=== PATIENT | female | born 1970 | race Caucasian/White ===

== ENCOUNTER 2018-07-26 10:55 | Day surgery (SDC) | payer OTHER ==
[2018-07-26] MEDS ORDERED: DIPRIVAN 200 MG/20 ML IV ONE (10:56)
[2018-07-26] MEDS ORDERED: Sodium Chloride 0.9(Preservative Free) 10 ML IJ ONE (10:56)
[2018-07-26] MEDS ORDERED: Depo-Medrol 40 MG/ML IM ONE (10:56)
--- NOTE | 2018-07-26 13:42 | XRAY ---
Indication: Bilateral L4-S1 transforaminal injections. Intraoperative fluoroscopy was provided for 56 seconds. 5 digital spot images submitted for interpretation demonstrates posterior spinal needle tips projecting over the expected course of the left and right L4-L5 nerve roots. Small amount of contrast injected for needle tip placement. Correlate with intraoperative findings/report. Incidental bilateral L5-S1 posterior pedicle screws/hardware and intervertebral spacer.
--- NOTE | 2018-07-26 13:49 | XRAY ---
56 seconds fluoroscopy time in surgery for bilateral L4-S1 transforaminal injections.
[2018-07-26] MEDS ORDERED: Lactated Ringers 1,000 ML IV ONE (15:00)
== END 2018-07-26 12:37 | disposition home or self-care (01) ==
LOC: SDC-PAIN 10:55
PROVIDERS: ATTEND Psychiatry & Neurology Pain Medicine
DX: M54.16 Radiculopathy, lumbar region (principal); M47.816 Spondylosis without myelopathy or radiculopathy, lumbar region; M54.9 Dorsalgia, unspecified; M25.552 Pain in left hip; M25.551 Pain in right hip; I10 Essential (primary) hypertension; K51.90 Ulcerative colitis, unspecified, without complications; F32.9 Major depressive disorder, single episode, unspecified; Z79.899 Other long term (current) drug therapy
CPT/HCPCS: 72020; 77003; J1030; J2704

== ENCOUNTER 2019-05-02 13:36 | Day surgery (SDC) | payer OTHER ==
[2019-05-02] MEDS ORDERED: Xylocaine-Mpf 2% 5 Ml Vial IJ ONE (13:37)
[2019-05-02] MEDS ORDERED: Depo-Medrol 40 MG/ML IM ONE (13:37)
[2019-05-02] MEDS ORDERED: DIPRIVAN 200 MG/20 ML IV ONE (14:25)
[2019-05-02] MEDS ORDERED: Ketamine HCl 50 MG/ML ONE (14:25)
[2019-05-02] MEDS ORDERED: Lactated Ringers 1,000 ML IV ONE (16:18)
--- NOTE | 2019-05-02 17:05 | XRAY ---
Indication: Bilateral L4-S1 MBB. Intraoperative fluoroscopy was provided for 21 seconds. 3 digital spot images submitted for interpretation demonstrate posterior needle tips projecting over the expected course of the left and right L4-S1 nerve roots. Correlate with intraoperative findings/report. Incidental bilateral L5-S1 posterior pedicle screws/hardware and intervertebral spacer.
--- NOTE | 2019-05-02 17:23 | XRAY ---
21 seconds fluoroscopy time in surgery for bilateral L4-S1 MBB.
== END 2019-05-02 14:50 | disposition home or self-care (01) ==
LOC: SDC-PAIN 13:36
PROVIDERS: ATTEND Psychiatry & Neurology Pain Medicine
DX: M47.816 Spondylosis without myelopathy or radiculopathy, lumbar region (principal); K51.90 Ulcerative colitis, unspecified, without complications; I10 Essential (primary) hypertension; K21.9 Gastro-esophageal reflux disease without esophagitis; F32.9 Major depressive disorder, single episode, unspecified; Z79.899 Other long term (current) drug therapy
CPT/HCPCS: 72020; 77002; J1030; J2704

== ENCOUNTER 2019-06-20 13:06 | Day surgery (SDC) | payer OTHER ==
[2019-06-20] MEDS ORDERED: Marcaine 0.5% SDV 10 ML IJ ONE (13:07)
[2019-06-20] MEDS ORDERED: DIPRIVAN 200 MG/20 ML IV ONE (13:35)
[2019-06-20] MEDS ORDERED: Ketamine HCl 50 MG/ML ONE (13:35)
--- NOTE | 2019-06-20 15:38 | XRAY ---
Indication: Bilateral L4-S1 MBB. Intraoperative fluoroscopy was provided for 17 seconds. Single digital spot image submitted for interpretation demonstrate posterior needle tips projecting over the expected course of the left and right L4-S1 nerve roots. Correlate with intraoperative findings/report. Incidental bilateral L5-S1 spinal hardware including intervertebral spacer.
--- NOTE | 2019-06-20 15:42 | XRAY ---
17 seconds fluoroscopy time in surgery for bilateral L4-S1 MBB.
[2019-06-20] MEDS ORDERED: Lactated Ringers 1,000 ML IV ONE (15:56)
== END 2019-06-20 14:02 | disposition home or self-care (01) ==
LOC: SDC-PAIN 13:06
PROVIDERS: ATTEND Psychiatry & Neurology Pain Medicine
DX: M47.816 Spondylosis without myelopathy or radiculopathy, lumbar region (principal); I10 Essential (primary) hypertension; K21.9 Gastro-esophageal reflux disease without esophagitis; K51.90 Ulcerative colitis, unspecified, without complications; F32.9 Major depressive disorder, single episode, unspecified; Z79.899 Other long term (current) drug therapy
CPT/HCPCS: 64493; 64494; 72020; 77002; J2704

== ENCOUNTER 2019-07-18 13:14 | Day surgery (SDC) | payer OTHER ==
[~2019-07-18 13:14] MED LIST: Lactated Ringers 1,000 ML IV ONE
[2019-07-18] MEDS ORDERED: Depo-Medrol 40 MG/ML IM ONE (13:15)
[2019-07-18] MEDS ORDERED: Marcaine 0.5% SDV 10 ML IJ ONE (13:15)
[2019-07-18] MEDS ORDERED: Xylocaine 1% Vial 30 ML PF IJ ONE (13:15)
[2019-07-18] MEDS ORDERED: DIPRIVAN 200 MG/20 ML IV ONE ×2 (14:00→14:08)
[2019-07-18] MEDS ORDERED: BENADRYL 50 MG/ML ONE (14:01)
[2019-07-18] MEDS ORDERED: Ketamine HCl 50 MG/ML ONE (14:01)
--- NOTE | 2019-07-18 16:13 | XRAY ---
Indication: Right L4-S1 RFA. Intraoperative fluoroscopy was provided for 36 seconds. 4 digital spot images submitted for interpretation demonstrate posterior needle tips projecting over the expected course of the right L4-S1 nerve roots. Correlate with intraoperative findings/report. Incidental partially visualized L5-S1 posterior fusion hardware and intervertebral spacer.
--- NOTE | 2019-07-18 16:17 | XRAY ---
36 seconds fluoroscopy time in surgery for right L4-S1 RFA.
== END 2019-07-18 14:30 | disposition home or self-care (01) ==
LOC: SDC-PAIN 13:14
PROVIDERS: ATTEND Psychiatry & Neurology Pain Medicine
DX: M47.816 Spondylosis without myelopathy or radiculopathy, lumbar region (principal); M47.817 Spondylosis without myelopathy or radiculopathy, lumbosacral region; I10 Essential (primary) hypertension; K51.90 Ulcerative colitis, unspecified, without complications; F32.9 Major depressive disorder, single episode, unspecified; Z79.899 Other long term (current) drug therapy
CPT/HCPCS: 64635; 64636; 72100; 77002; J1030; J1200; J2001; J2704

== ENCOUNTER 2019-07-25 12:07 | Day surgery (SDC) | payer OTHER ==
[2019-07-25] MEDS ORDERED: Marcaine 0.5% SDV 10 ML IJ ONE (12:08)
[2019-07-25] MEDS ORDERED: Depo-Medrol 40 MG/ML IM ONE (12:08)
[2019-07-25] MEDS ORDERED: Xylocaine 1% Vial 30 ML PF IJ ONE (12:08)
[2019-07-25] MEDS ORDERED: Ketamine HCl 50 MG/ML ONE (13:12)
[2019-07-25] MEDS ORDERED: DIPRIVAN 200 MG/20 ML IV ONE ×2 (13:12→13:21)
[2019-07-25] MEDS ORDERED: BENADRYL 50 MG/ML ONE (13:13)
--- NOTE | 2019-07-25 14:11 | XRAY ---
Indication: Left L4-S1 RFA. Intraoperative fluoroscopy was provided for 24 seconds. 3 digital spot images submitted for interpretation demonstrates posterior needle tips projecting over the expected course of the left L4-S1 nerve roots. Correlate with intraoperative findings/report. Incidental L5-S1 bilateral posterior fusion hardware and intervertebral spacer
--- NOTE | 2019-07-25 14:31 | XRAY ---
24 seconds fluoroscopy time in surgery for left L4-S1 RFA.
[2019-07-25] MEDS ORDERED: Lactated Ringers 1,000 ML IV ONE (14:53)
== END 2019-07-25 13:45 | disposition home or self-care (01) ==
LOC: SDC-PAIN 12:07
PROVIDERS: ATTEND Psychiatry & Neurology Pain Medicine
DX: M47.816 Spondylosis without myelopathy or radiculopathy, lumbar region (principal); M54.16 Radiculopathy, lumbar region; I10 Essential (primary) hypertension; K21.9 Gastro-esophageal reflux disease without esophagitis; K51.90 Ulcerative colitis, unspecified, without complications; Z79.899 Other long term (current) drug therapy
CPT/HCPCS: 64635; 64636; 72100; 77002; J1030; J1200; J2001; J2704